=== PATIENT | female | born 1975 | race Caucasian/White ===

== ENCOUNTER → 2020-04-06 | Day surgery (SDC) | payer BC ==
[~2020-04-06] MED LIST: Ketamine 200 MG/20 ML MDV ONE; Lactated Ringers 1,000 ML IV ONE; Propofol 200 MG/20 ML SDV ONE; fentaNYL 100 MCG/2 ML SDV ONE
--- NOTE | 2020-04-07 13:57 | OR ---
DATE OF OPERATION: 04/06/2020 PREOPERATIVE DIAGNOSIS: 1. FAMILY HISTORY OF COLON CANCER. 2. CHRONIC ABDOMINAL PAIN. POSTOPERATIVE DIAGNOSIS: 1. FAMILY HISTORY OF COLON CANCER. 2. CHRONIC ABDOMINAL PAIN. SURGEON: Kai Gtz MD PROCEDURE: FULL-LENGTH COLONOSCOPY. ANESTHESIA: MAC. COMPLICATIONS: None. SPECIMEN: None. FINDINGS: Normal full-length colonoscopy. RECOMMENDATIONS: Followup colonoscopy in 10 years. INDICATIONS: The patient has been having some ongoing issues with abdominal pain. Mother has a history of polyps and apparently grandmother with a history of colon cancer. Dr. Plata sent her for a diagnostic scope. DESCRIPTION OF PROCEDURE: The patient was prepped and draped, placed in the left lateral decubitus position. A lubricated Olympus colonoscope was inserted and without difficulty advanced to the cecum. Direct visualization of the ileocecal valve and appendiceal orifice was accomplished. The bowel prep was adequate. Upon withdrawal of the scope throughout the entire length of the colon, I could find no polyps, masses, ulceration, or bleeding sites. No vascular abnormalities or signs of colitis. No diverticula. The rectal vault was benign. Retroflexion of the scope in the rectum showed no anal lesions. Air was suctioned and the scope removed without complication. SUSANNA/LESLIE /[id number]
== END ==
LOC: CC.SDS 13:06
PROVIDERS: ATTEND Family Medicine
DX: G89.29 Other chronic pain (principal); R10.9 Unspecified abdominal pain; G47.00 Insomnia, unspecified; D64.9 Anemia, unspecified; E78.5 Hyperlipidemia, unspecified; Z01.812 Encounter for preprocedural laboratory examination; Z20.828 Contact with and (suspected) exposure to other viral communicable diseases; Z80.0 Family history of malignant neoplasm of digestive organs; Z79.899 Other long term (current) drug therapy; Z98.890 Other specified postprocedural states; Z88.8 Allergy status to other drugs, medicaments and biological substances; Z91.018 Allergy to other foods
CPT/HCPCS: 00812; J2704; J3010; J7120